=== PATIENT | female | born 1965 | race American Indian/Alaskan Native ===

== ENCOUNTER 2017-01-15 12:51 | Emergency (ER) | payer SELFPAY ==
--- NOTE | 2017-01-15 13:43 | Emergency Department Report ---
Stated Complaint: COLD Time Seen by Provider: 01/15/17 13:41 - HPI History of Present Illness: PT c/o body aches x 1 week - ROS Review of Systems: + n/v + productive cough - Exam Physical Exam: pt looks well, non toxic abd soft and not tender at this time MSE screening note: Focused history and physical exam performed. Due to findings the following was ordered: labs, xr ED Disposition for MSE Condition: Stable
[2017-01-15 14:19] LABS: Basophils % (Auto) 0.6 % (0.0-1.8); Mean Corpuscular HGB Conc 32 % (30-34); Mean Corpuscular Hemoglobin 26 pg (28-32); Mean Corpuscular Volume 83 fl (79-97); Platelet Count 206 K/mm3 (140-440); Red Blood Count 4.59 M/mm3 (3.65-5.03); Red Cell Distribution Width 14.8 % (13.2-15.2); White Blood Count 5.2 K/mm3 (4.5-11.0)
[2017-01-15 14:30] LABS: Alanine Aminotransferase 9 units/L (7-56); Albumin 3.7 g/dL (3.9-5); Albumin/Globulin Ratio 0.9 %; Alkaline Phosphatase 76 units/L (35-129); Anion Gap 16 mmol/L; BUN/Creatinine Ratio 19; Blood Urea Nitrogen 15 mg/dL (7-17); Calcium 8.2 mg/dL (8.4-10.2); Carbon Dioxide 24 mmol/L (22-30); Chloride 102.3 mmol/L (98-107); Glucose 88 mg/dL (65-100); Lipase 19 units/L (13-60); Potassium 4.6 mmol/L (3.6-5.0); Sodium 138 mmol/L (137-145); Total Protein 7.8 g/dL (6.3-8.2)
--- NOTE | 2017-01-15 14:49 | XRay Report ---
Chest 2 views. Findings: The heart is borderline in size with normal pulmonary vascularity. The lungs are clear. There is no pleural fluid. Impression: Borderline heart size with no acute findings.
[2017-01-15 15:29] LABS: Bilirubin,Urine NEG (Negative); Blood,Urine LG (Negative); Ketones,Urine NEG (Negative); Leukocyte Esterase,Urine TR (Negative); Nitrite,Urine NEG (Negative); Urobilinogen,Urine < 2.0 mg/dL (<2.0)
[2017-01-15 15:31] LABS: RBC,Urine > 182.0 /HPF (0.0-6.0)
[2017-01-15 22:48] VITALS: BP 177/141
--- NOTE | 2017-01-15 23:06 | Emergency Department Report ---
HPI - General Chief Complaint: Abdominal Pain Time Seen by Provider: 01/15/17 13:41 - [facility] HPI: [address] 28 The patient is a 51-year-old female presenting with a chief complaint of cough. The patient states for the past 4 days she has had a "cold." The patient states she has had a cough productive of greenish and yellow sputum. Patient admits to chest congestion and pain with coughing. Patient is to rhinorrhea and a subjective fever. There have been sick contacts at home as above family members have had the same symptoms. Location: [See above] Duration: 4 days Quality: Cough, congestion Severity: Moderate Modifying factors: [see above] Context: [see above] Mode of transportation: [not driving] ED Past Medical Hx - Past Medical History Hx Hypertension: Yes (Doesn't take meds) - Surgical History Past Surgical History?: No Additional Surgical History: foot surgery - Family History Family history: no significant - Social History Smoking Status: Former Smoker (none 5 years) Substance Use Type: None (denies illicit drug use) - Medications Home Medications: Home Medications Medication Instructions Recorded Confirmed Last Taken Type ALBUTEROL Inhaler [Proair] 2 puff IH QID PRN #1 inhalation 01/16/17 Unknown Rx Benzonatate [Tessalon Perle] 100 mg PO TID PRN #30 capsule 01/16/17 Unknown Rx Ciprofloxacin HCl [Ciprofloxacin 500 mg PO Q12HR #14 tab 01/16/17 Unknown Rx TAB] Cyclobenzaprine [Flexeril] 10 mg PO TID PRN #15 tablet 01/16/17 Unknown Rx ED Review of Systems ROS: Stated complaint: COLD Other details as noted in HPI Comment: All other systems reviewed and negative Constitutional: fever (subjective) Eyes: denies: eye pain, eye discharge, vision change ENT: denies: ear pain, throat pain Respiratory: cough, shortness of breath Cardiovascular: denies: chest pain, palpitations Endocrine: no symptoms reported Gastrointestinal: denies: abdominal pain, diarrhea Genitourinary: denies: urgency, dysuria, discharge Musculoskeletal: myalgia Skin: denies: rash, lesions Neurological: denies: headache, weakness, paresthesias Psychiatric: denies: anxiety, depression Hematological/Lymphatic: denies: easy bleeding, easy bruising Physical Exam - Physical Exam Vital Signs: Vital Signs 01/15/17 01/15/17 13:41 22:47 Temperature 98.5 F 98.9 F Pulse Rate 50 L 74 Respiratory 20 18 Rate Blood Pressure 125/86 Blood Pressure 177/141 [Left] O2 Sat by Pulse 100 100 Oximetry Physical Exam: GENERAL: The patient is well-developed well-nourished female sitting on stretcher not appearing to be in acute distress. [] HEENT: Normocephalic. Atraumatic. Extraocular motions are intact. Patient has moist mucous membranes. NECK: Supple. Trachea midline CHEST/LUNGS: Clear to auscultation. There is no respiratory distress noted. Occasional cough HEART/CARDIOVASCULAR: Regular. There is no tachycardia. There is no gallop rub or murmur. ABDOMEN: Abdomen is soft, nontender. Patient has normal bowel sounds. There is no abdominal distention. SKIN: There is no rash. There is no edema. There is no diaphoresis. NEURO: The patient is awake, alert, and oriented. The patient is cooperative. The patient has normal speech MUSCULOSKELETAL: There is no evidence of acute injury. ED Course Vital Signs 01/15/17 01/15/17 13:41 22:47 Temperature 98.5 F 98.9 F Pulse Rate 50 L 74 Respiratory 20 18 Rate Blood Pressure 125/86 Blood Pressure 177/141 [Left] O2 Sat by Pulse 100 100 Oximetry ED Medical Decision Making - Lab Data Result diagrams: 01/15/17 13:56 01/15/17 13:56 Laboratory Tests 01/15/17 01/15/17 01/15/17 13:56 13:56 14:48 WBC 5.2 RBC 4.59 Hgb 12.0 Hct 38.0 MCV 83 MCH 26 L MCHC 32 RDW 14.8 Plt Count 206 Lymph % (Auto) 36.1 H [place] % (Auto) 13.6 H Eos % (Auto) 8.0 H Baso % (Auto) 0.6 Lymph # 1.9 Callahan # 0.7 Eos # 0.4 Baso # 0.0 Seg Neutrophils % 41.7 Seg Neutrophils # 2.2 Sodium 138 Potassium 4.6 Chloride 102.3 Carbon Dioxide 24 Anion Gap 16 BUN 15 Creatinine 0.8 Estimated GFR > 60 BUN/Creatinine Ratio 19 Glucose 88 Calcium 8.2 L Total Bilirubin 0.30 AST 12 ALT 9 Alkaline Phosphatase 76 Total Protein 7.8 Albumin 3.7 L Albumin/Globulin Ratio 0.9 Lipase 19 Urine Color Red Urine Turbidity Clear Urine pH 7.0 Ur Specific [place] 1.018 Urine Protein 30 mg/dl Urine Glucose (UA) Neg Urine Ketones Neg Urine Blood Lg Urine Nitrite Neg Urine Bilirubin Neg Urine Urobilinogen < 2.0 Ur Leukocyte Esterase Tr Urine WBC (Auto) 23.0 H Urine RBC (Auto) > 182.0 U Epithel Cells (Auto) 9.0 Influenza negative - Radiology Data Radiology results: image reviewed (chest x-ray) interpreted by me: Chest x-ray-no focal infiltrates, no pneumothorax - Differential Diagnosis pneumonia, bronchitis, influenza Critical care attestation.: If time is entered above; I have spent that time in minutes in the direct care of this critically ill patient, excluding procedure time. ED Disposition Clinical Impression: Acute bronchitis Disposition: TO HOME OR SELFCARE Is pt being admited?: No Does the pt Need Aspirin: No Condition: Stable Instructions: Abdominal Pain (ED), Acute Bronchitis (ED) Additional Instructions: Return to the emergency department immediately should you develop worsening symptoms, fever, inability to tolerate food or liquid or any other concerns. Prescriptions: ALBUTEROL Inhaler [Proair] 2 puff IH QID PRN #1 inhalation PRN Reason: Shortness Of Breath Benzonatate [Tessalon Perle] 100 mg PO TID PRN #30 capsule PRN Reason: Cough Ciprofloxacin HCl [Ciprofloxacin TAB] 500 mg PO Q12HR #14 tab Cyclobenzaprine [Flexeril] 10 mg PO TID PRN #15 tablet PRN Reason: Muscle Spasm Referrals: NOVA CARLTON MD [Staff Physician] - 3-5 Days Time of Disposition: 00:33
== END 2017-01-16 00:58 | disposition home or self-care (01) ==
LOC: ED 12:51
DX: J20.9 Acute bronchitis, unspecified (principal); I10 Essential (primary) hypertension; Z87.891 Personal history of nicotine dependence
CPT/HCPCS: 36415; 71020; 80053; 81001; 83690; 85025; 87400